=== PATIENT | male | born 1970 | race Caucasian/White ===

== ENCOUNTER 2018-04-03 18:10 | Inpatient (IN) | payer OTHER ==
[2018-04-03] VITALS (7 sets, daily range): BP systolic 109–147; BP diastolic 50–71; PULSE 90–102; RESP 20; TEMP 97.7–98; O2SAT 93–97
[~2018-04-03] VITALS: Ht 185.4 cm; Wt 140.0 kg
[2018-04-03] MEDS ORDERED: SODIUM CHLOR 0.9% 1000 ML INJ 1,000 ML IV ONE ×2 (19:00→22:15)
[2018-04-03] MEDS ORDERED: SODIUM CHLORIDE 0.9% FLUSH 10 ML FLUSH IVF PRN (19:00)
[2018-04-03] MEDS ORDERED: methylPREDNISolone SOD SUCC 125 MG/2 ML VIAL IV PUSH ONE (19:00)
--- NOTE | 2018-04-03 19:10 | PD ---
HPI Chief Complaint: Respiratory Symptoms Time Seen by Provider: 18:53 Travel History International Travel<30 days: No Contact w/Intl Traveler<30days: No Traveled to known affect area: No History of Present Illness HPI 48-year-old male presents to the emergency department for flulike symptoms for 2 days. Patient reports subjective fevers, cough, congestion, shortness of breath. Patient states that he quit smoking 6 days ago. He did smoke for 26 years. Patient states he will have chest pain with coughing, no pain at this time. No abdominal pain. No nausea, vomiting, diarrhea. He reports no chronic medical problems and takes no prescribed medications. Denies a history of CHF. Denies any weakness or syncope. No sore throat. He states that he recently moved from [place] and is not currently established with a primary care physician. He took ibuprofen 800 mg p.o. before arrival. No exacerbating or alleviating factors. Moderate severity. PFSH Social History Alcohol Use: No Tobacco Use: Yes Substance Use: No Allergies-Medications (Allergen,Severity, Reaction): Coded Allergies: No Known Allergies (Verified Allergy, Unknown, 04/03/18) Reported Meds & Prescriptions Reported Meds & Active Scripts Active Zithromax Z-Steven (Azithromycin) 250 Mg Dspk 250 Mg PO DIRECTED 500 MG (2 tabs) day 1, then 1 tab days 2-5. Review of Systems Except as stated in HPI: all other systems reviewed are Neg Physical Exam Narrative GENERAL: Well-nourished, well-developed obese male patient, afebrile. SKIN: Focused skin assessment warm/dry. HEAD: Normocephalic. Atraumatic ENT: Mucosa pink and moist. No erythema or exudates. No uvular edema. No uvular , palatal, or tonsillar deviation. Airway patent. Nasal turbinates appear normal without nasal blood, purulent drainage or septal hematoma. Bilateral tympanic membranes clear without erythema or perforation. EYES: No scleral icterus. No injection or drainage. NECK: Supple, trachea midline. No JVD or lymphadenopathy. CARDIOVASCULAR: Regular rate and rhythm without murmurs, gallops, or rubs. RESPIRATORY: Breath sounds equal bilaterally. No accessory muscle use. Lung sounds with expiratory wheezes noted throughout. GASTROINTESTINAL: Abdomen soft, non-tender, nondistended. MUSCULOSKELETAL: No cyanosis, or edema. BACK: Nontender without obvious deformity. No CVA tenderness. Data Data Last Documented VS Vital Signs Date Time Temp Pulse Resp B/P (MAP) Pulse Ox O2 Delivery O2 Flow Rate FiO2 04/03/18 22:33 98.0 98 20 147/71 (96) 97 Room Air Orders Orders Complete Blood Count With Diff (04/03/18 18:59) Basic Metabolic Panel (Bmp) (04/03/18 18:59) Act Partial Throm Time (Ptt) (04/03/18 18:59) Prothrombin Time / Inr (Pt) (04/03/18 18:59) Magnesium (Mg) (04/03/18 18:59) Ckmb (Isoenzyme) Profile (04/03/18 18:59) Troponin I (04/03/18 18:59) Influenzae A/B Antigen (04/03/18 18:59) Iv Access Insert/Monitor (04/03/18 18:59) Electrocardiogram (04/03/18 18:59) Ecg Monitoring (04/03/18 18:59) Oximetry (04/03/18 18:59) Oxygen Administration (04/03/18 18:59) Chest, Single Ap (04/03/18 18:59) Sodium Chloride 0.9% Flush (Ns Flush) (04/03/18 19:00) Methylprednisolone So Succ Inj (Solumedr (04/03/18 19:00) Albuterol-Ipratropium Neb (Duoneb Neb) (04/03/18 19:00) Sodium Chlor 0.9% 1000 Ml Inj (Ns 1000 M (04/03/18 19:00) CKMB (04/03/18 19:00) CKMB% (04/03/18 19:00) Lactic Acid Sepsis Protocol (04/03/18 19:48) Blood Culture (04/03/18 19:48) Azithromycin Inj (Zithromax Inj) (04/03/18 20:00) Ceftriaxone Inj (Rocephin Inj) (04/03/18 20:00) Sodium Chlor 0.9% 1000 Ml Inj (Ns 1000 M (04/03/18 22:15) Ed Discharge Order (04/03/18 22:52) Labs Laboratory Tests Test 04/03/18 19:00 04/03/18 20:00 White Blood Count 17.5 TH/MM3 Red Blood Count 4.65 MIL/MM3 Hemoglobin 13.7 GM/DL Hematocrit 42.1 % Mean Corpuscular Volume 90.6 FL Mean Corpuscular Hemoglobin 29.6 PG Mean Corpuscular Hemoglobin Concent 32.6 % Red Cell Distribution Width 13.7 % Platelet Count 321 TH/MM3 Mean Platelet Volume 8.0 FL Neutrophils (%) (Auto) 78.3 % Lymphocytes (%) (Auto) 10.8 % Monocytes (%) (Auto) 10.3 % Eosinophils (%) (Auto) 0.2 % Basophils (%) (Auto) 0.4 % Neutrophils # (Auto) 13.7 TH/MM3 Lymphocytes # (Auto) 1.9 TH/MM3 Monocytes # (Auto) 1.8 TH/MM3 Eosinophils # (Auto) 0.0 TH/MM3 Basophils # (Auto) 0.1 TH/MM3 CBC Comment DIFF FINAL Differential Comment Prothrombin Time 11.3 SEC Prothromb Time International Ratio 1.1 RATIO Activated Partial Thromboplast Time 28.4 SEC Blood Urea Nitrogen 11 MG/DL Creatinine 1.45 MG/DL Random Glucose 108 MG/DL Calcium Level 8.6 MG/DL Magnesium Level 2.3 MG/DL Sodium Level 140 MEQ/L Potassium Level 3.6 MEQ/L Chloride Level 106 MEQ/L Carbon Dioxide Level 24.4 MEQ/L Anion Gap 10 MEQ/L Estimat Glomerular Filtration Rate 52 ML/MIN Total Creatine Kinase 842 U/L Creatine Kinase MB 1.7 NG/ML Creatine Kinase MB % 0.2 % Troponin I LESS THAN 0.02 NG/ML Lactic Acid Level 1.3 mmol/L MDM Medical Decision Making Medical Screen Exam Complete: Yes Emergency Medical Condition: Yes Medical Record Reviewed: Yes Interpretation(s) Last Impressions Chest X-Ray 04/03/18 7892 Signed Impressions: Service Date/Time: Tuesday, April 03, 2018 19:03 - CONCLUSION: Left lower lobe infiltrate. Jesse Burgos Jr., MD Differential Diagnosis URI versus pneumonia versus influenza versus bronchitis versus ACS Narrative Course 48-year-old male presents to the emergency department for evaluation of flulike symptoms for 2 days. EKG, CBC, BMP, CK, troponin, magnesium, PTT, PT/INR, influenza, chest x-ray ordered and pending. Patient is given DuoNeb 2, they measure 125 mg IV, normal saline 1 L IV bolus. EKG shows SR, HR 100, no acute ST changes. CBC shows leukocytosis 17.5. BMP shows creatinine 1.45. CK is 842. Troponin is less than 0.02. Magnesium is 2.3. Coags are unremarkable. Influenza is negative. Chest x-ray shows left lower lobe infiltrate. Patient is given second liter normal saline IV bolus. My initial plan was to try patient for outpatient antibiotics. However, after receiving second liter normal saline IV bolus, he states that he is not feeling well again. His oxygen saturation is 89-90% on room air. He will be placed on 2 L O2 nasal cannula and admitted to the hospital. Sepsis Criteria SIRS Criteria (2 or more): Heart rate over 90, WBC > 58300, < 4000 or > 10% bands Sepsis Criteria (SIRS+source): Infect source susp/known Diagnosis Primary Impression: Pneumonia Qualified Codes: J18.1 - Lobar pneumonia, unspecified organism Additional Impression: Sepsis Qualified Codes: A41.9 - Sepsis, unspecified organism Referrals: Primary Care Physician 1 day Darline Martinez April 03, 2018 19:09
[2018-04-03] MEDS: RESP: ALBUTEROL 2.5 MG/IPRATROPIUM 0.5 MG NEB (SCH) INH (19:16)
--- NOTE | 2018-04-03 19:22 | RADRPT ---
EXAM DATE/TIME: 04/03/2018 19:03 [facility] COMPARISON: No previous studies available for comparison. INDICATIONS : Short of breath MEDICAL HISTORY : None. SURGICAL HISTORY : None. ENCOUNTER: Initial ACUITY: 4 - 6 days PAIN SCORE: 3/10 LOCATION: chest FINDINGS: 2 portable frontal views of the chest showed intra-alveolar infiltrate within the left base. Right libby ng is clear. No effusions. Heart is normal in size. Bony structures are unremarkable. CONCLUSION: Left lower lobe infiltrate. Jesse Burgos Jr., MD on April 03, 2018 at 19:19 Board Certified Radiologist. This report was verified electronically.
[2018-04-03 19:27] LABS: AUTOMATED NEUTROPHIL # 13.7 TH/MM3 (1.8-7.7); BASOPHIL # 0.1 TH/MM3 (0-0.2); BASOPHIL % 0.4 % (0.0-2.0); EOSINOPHIL % 0.2 % (0.0-4.0); HEMATOCRIT 42.1 % (39.0-51.0); HEMOGLOBIN 13.7 GM/DL (13.0-17.0); LYMPH % 10.8 % (9.0-44.0); LYMPHOCYTE # 1.9 TH/MM3 (1.0-4.8); MEAN CELL VOLUME 90.6 FL (80.0-100.0); MEAN CORPUSCULAR HEMOGLOBIN 29.6 PG (27.0-34.0); MEAN CORPUSCULAR HGB CONC 32.6 % (32.0-36.0); MONO % 10.3 % (0.0-8.0); MONOCYTE # 1.8 TH/MM3 (0-0.9); NEUT % 78.3 % (16.0-70.0); PLATELET COUNT 321 TH/MM3 (150-450); RED BLOOD COUNT 4.65 MIL/MM3 (4.50-5.90); RED CELL DISTRIBUTION WIDTH 13.7 % (11.6-17.2); WHITE BLOOD COUNT 17.5 TH/MM3 (4.0-11.0)
[2018-04-03 19:38] LABS: BICARBONATE 24.4 MEQ/L (21.0-32.0); BLOOD UREA NITROGEN 11 MG/DL (7-18); CALCIUM 8.6 MG/DL (8.5-10.1); CHLORIDE 106 MEQ/L (98-107); CREATININE 1.45 MG/DL (0.60-1.30); GLOMERULAR FILTRATION RATE 52 ML/MIN (>89); GLUCOSE,RANDOM 108 MG/DL (74-106); MAGNESIUM 2.3 MG/DL (1.5-2.5); SODIUM (NA) 140 MEQ/L (136-145)
[2018-04-03 19:45] LABS: INTERNATIONAL NORMALIZED RATIO 1.1 RATIO; PROTHROMBIN TIME - PATIENT 11.3 SEC (9.8-11.6); TROPONIN I LESS THAN 0.02 NG/ML (0.02-0.05)
[2018-04-03] MEDS ORDERED: AZITHROMYCIN INJ 500 MG in SODIUM CHLOR 0.9% 250 ML INJ 250 ML IV ONE (20:00)
[2018-04-03] MEDS ORDERED: cefTRIAXone INJ 1,000 MG in SODIUM CHLORIDE 0.9% INJ 100 ML IV ONE (20:00)
[2018-04-03] MEDS ORDERED: ZITHTAB PO ×2 (22:38→22:51)
[2018-04-03] MEDS ORDERED: RESP: ALBUTEROL 2.5 MG/IPRATROPIUM 0.5 MG NEB (PRN) INH (23:15)
[2018-04-03] MEDS ORDERED: ACETAMINOPHEN 325 MG TAB PO PRN (23:15)
[2018-04-03] MEDS ORDERED: SODIUM CHLORIDE 0.9% FLUSH 10 ML FLUSH IV FLUSH PRN (23:15)
[2018-04-03] MEDS ORDERED: ONDANSETRON ODT 4 MG TAB PO PRN (23:30)
[2018-04-04] VITALS (8 sets, daily range): BP systolic 122–144; BP diastolic 60–73; PULSE 94–107; RESP 17–19; TEMP 97.6–99; O2SAT 93–96
[2018-04-04] MEDS: methylPREDNISolone SOD SUCC 40 MG/1 ML VIAL IV PUSH SCH ×4 (02:05→20:06)
[2018-04-04 05:22] LABS: AUTOMATED NEUTROPHIL # 18.2 TH/MM3 (1.8-7.7); BASOPHIL % 0.1 % (0.0-2.0); HEMATOCRIT 38.9 % (39.0-51.0); HEMOGLOBIN 12.6 GM/DL (13.0-17.0); LYMPH % 4.8 % (9.0-44.0); LYMPHOCYTE # 0.9 TH/MM3 (1.0-4.8); MEAN CELL VOLUME 90.1 FL (80.0-100.0); MEAN CORPUSCULAR HEMOGLOBIN 29.2 PG (27.0-34.0); MEAN CORPUSCULAR HGB CONC 32.4 % (32.0-36.0); MEAN PLATELET VOLUME 7.9 FL (7.0-11.0); MONO % 1.9 % (0.0-8.0); MONOCYTE # 0.4 TH/MM3 (0-0.9); NEUT % 93.2 % (16.0-70.0); PLATELET COUNT 335 TH/MM3 (150-450); RED BLOOD COUNT 4.31 MIL/MM3 (4.50-5.90); WHITE BLOOD COUNT 19.5 TH/MM3 (4.0-11.0)
[2018-04-04 05:46] LABS: BICARBONATE 22.7 MEQ/L (21.0-32.0); CALCIUM 8.5 MG/DL (8.5-10.1); CREATININE 1.18 MG/DL (0.60-1.30)
[2018-04-04] MEDS: RESP: ALBUTEROL 2.5 MG/IPRATROPIUM 0.5 MG NEB (SCH) INH ×3 (07:32→19:18)
--- NOTE | 2018-04-04 09:13 | HHI.HP ---
HPI Service CP Hospitalists Primary Care Physician No Primary Care Physician Admission Diagnosis pneumonia Chief Complaint: cough fever Travel History International Travel<30 Days: No Contact w/Intl Traveler <30 Da: No Traveled to Known Affected Are: No History of Present Illness Patient is a pleasant 48-year-old male who presented to the [place] ER yesterday evening with complaints of fever and cough ongoing for the last 2 days. Patient complains of shortness of breath with exertion. Patient is a current smoker but states that he started smoking 6 days ago. Patient denies history of asthma or COPD. Patient denies any recent travel or particular sick contacts. Chest x-ray obtained in the ER (04/03/18) showed left lower lobe infiltrate. Patient was desaturating off supplemental oxygen. Patient was admitted to [facility] for further evaluation and treatment. Review of Systems Constitutional: COMPLAINS OF: Fever, DENIES: Diaphoretic episodes, Fatigue, Weight gain, Weight loss, Chills, Dizziness, Change in appetite, Night Sweats Endocrine: DENIES: Heat/cold intolerance, Polydipsia, Polyuria, Polyphagia Eyes: DENIES: Blurred vision, Diplopia, Eye inflammation, Eye pain, Vision loss , Photosensitivity, Double Vision Ears, nose, mouth, throat: DENIES: Tinnitus, Hearing loss, Vertigo, Nasal discharge, Oral lesions, Throat pain, Hoarseness, Ear Pain, Running Nose, Epistaxis, Sinus Pain, Toothache, Odynophagia Respiratory: COMPLAINS OF: Cough, Shortness of breath, DENIES: Apneas, Snoring , Wheezing, Hemoptysis, Sputum production Cardiovascular: DENIES: Chest pain, Palpitations, Syncope, Dyspnea on Exertion , PND, Lower Extremity Edema, Orthopnea, Claudication Gastrointestinal: DENIES: Abdominal pain, Black stools, Bloody stools, BRB per rectum, Constipation, Diarrhea, GERD, Nausea, Reflux, Vomiting, Difficulty Swallowing, Anorexia Genitourinary: DENIES: Urinary incontinence, Urgency, Hematuria, Dysuria, Nocturia Musculoskeletal: DENIES: Joint pain, Muscle aches, Stiffness, Joint Swelling, Back pain, Neck pain Integumentary: DENIES: Abnormal pigmentation, Nail changes, Pruritus, Rash Hematologic/lymphatic: DENIES: Bruising, Lymphadenopathy Immunologic/allergic: DENIES: Eczema, Urticaria Neurologic: DENIES: Abnormal gait, Headache, Localized weakness, Paresthesias, Seizures, Speech Problems, Tremor, Poor Balance Psychiatric: DENIES: Anxiety, Confusion, Mood changes, Depression, Hallucinations, Agitation, Suicidal Ideation, Homicidal Ideation, Delusions, History of Bipolar, History of Schizophrenia Past Family Social History Past Medical History 1) current smoker 2) obesity Past Surgical History None Reported Medications Reported Meds & Active Scripts Active Allergies: Coded Allergies: No Known Allergies (Verified Allergy, Unknown, 04/03/18) Family History Noncontributory Social History - Patient recently relocated to [facility] from the [facility] - Patient is a current smoker - No alcohol use - No illicit street drugs Physical Exam Vital Signs Vital Signs Date Time Temp Pulse Resp B/P (MAP) Pulse Ox O2 Delivery O2 Flow Rate FiO2 04/04/18 07:46 98.1 100 19 124/65 (84) 95 04/04/18 07:34 94 21 04/04/18 04:25 99.0 94 18 128/65 (86) 93 04/04/18 00:23 98.1 98 18 129/73 (91) 96 04/03/18 22:33 98.0 98 20 147/71 (96) 97 Room Air 04/03/18 22:00 93 04/03/18 21:00 98 20 138/64 (88) 97 Room Air 04/03/18 19:23 100 20 113/62 (79) 97 Room Air 04/03/18 19:13 20 04/03/18 19:12 Room Air 04/03/18 19:06 90 20 120/50 (73) 94 Room Air 04/03/18 19:03 98 24 94 Room Air 04/03/18 18:24 97.7 102 20 109/68 (82) 96 Physical Exam GENERAL: This is a well-nourished, well-developed patient, in no apparent distress. SKIN: No rashes, ecchymoses or lesions. Cool and dry. HEAD: Atraumatic. Normocephalic. No temporal or scalp tenderness. EYES: Pupils equal round and reactive. Extraocular motions intact. No scleral icterus. No injection or drainage. ENT: Nose without bleeding, purulent drainage or septal hematoma. Throat without erythema, tonsillar hypertrophy or exudate. Uvula midline. Airway patent. NECK: Trachea midline. No JVD or lymphadenopathy. Supple, nontender, no meningeal signs. CARDIOVASCULAR: Regular rate and rhythm without murmurs, gallops, or rubs. RESPIRATORY: Decreased air movement at lung bases GASTROINTESTINAL: Abdomen soft, non-tender, nondistended. No hepato-splenomegaly , or palpable masses. No guarding. MUSCULOSKELETAL: Extremities without clubbing, cyanosis, or edema. No joint tenderness, effusion, or edema noted. No calf tenderness. Negative Homans sign bilaterally. NEUROLOGICAL: Awake and alert. Cranial nerves II through XII intact. Motor and sensory grossly within normal limits. Five out of 5 muscle strength in all muscle groups. Normal speech. Laboratory Laboratory Tests Test 04/03/18 19:00 04/03/18 20:00 04/04/18 04:44 White Blood Count 17.5 19.5 Red Blood Count 4.65 4.31 Hemoglobin 13.7 12.6 Hematocrit 42.1 38.9 Mean Corpuscular Volume 90.6 90.1 Mean Corpuscular Hemoglobin 29.6 29.2 Mean Corpuscular Hemoglobin Concent 32.6 32.4 Red Cell Distribution Width 13.7 14.0 Platelet Count 321 335 Mean Platelet Volume 8.0 7.9 Neutrophils (%) (Auto) 78.3 93.2 Lymphocytes (%) (Auto) 10.8 4.8 Monocytes (%) (Auto) 10.3 1.9 Eosinophils (%) (Auto) 0.2 0.0 Basophils (%) (Auto) 0.4 0.1 Neutrophils # (Auto) 13.7 18.2 Lymphocytes # (Auto) 1.9 0.9 Monocytes # (Auto) 1.8 0.4 Eosinophils # (Auto) 0.0 0.0 Basophils # (Auto) 0.1 0.0 CBC Comment DIFF FINAL DIFF FINAL Differential Comment Prothrombin Time 11.3 Prothromb Time International Ratio 1.1 Activated Partial Thromboplast Time 28.4 Blood Urea Nitrogen 11 10 Creatinine 1.45 1.18 Random Glucose 108 157 Calcium Level 8.6 8.5 Magnesium Level 2.3 Sodium Level 140 142 Potassium Level 3.6 4.0 Chloride Level 106 110 Carbon Dioxide Level 24.4 22.7 Anion Gap 10 9 Estimat Glomerular Filtration Rate 52 66 Total Creatine Kinase 842 Creatine Kinase MB 1.7 Creatine Kinase MB % 0.2 Troponin I LESS THAN 0.02 Lactic Acid Level 1.3 Date/Time Source Procedure Growth Status 04/03/18 20:00 Blood Peripheral Aerobic Blood Culture Pending Received 04/03/18 20:00 Blood Peripheral Anaerobic Blood Culture Pending Received 04/03/18 19:05 Nasal Aspirate Influenza Types A,B Antigen (RAISSA) - Final NEGATIVE FOR FLU A AND B ANTIGEN.... Complete Result Diagram: 04/04/18 0444 04/04/18 0444 Caprini VTE Risk Assessment Caprini VTE Risk Assessment: No/Low Risk (score <= 1) Caprini Risk Assessment Model Point Value = 1 Point Value = 2 Point Value = 3 Point Value = 5 Age 41-60 Minor surgery BMI > 25 kg/m2 Swollen legs Varicose veins or History of unexplained or recurrent spontaneous Oral contraceptives or hormone replacement Sepsis (< 1 month) Serious lung disease, including pneumonia (< 1 month) Abnormal pulmonary function Acute myocardial infarction Congestive heart failure (< 1 month) History of inflammatory bowel disease Medical patient at bed rest Age 61-74 Arthroscopic surgery Major open surgery (> 45 min) Laparoscopic surgery (> 45 min) Malignancy Confined to bed (> 72 hours) Immobilizing plaster cast Central venous access Age >= 75 History of VTE Family history of VTE Factor V Leiden Prothrombin [id number] Lupus anticoagulant Anticardiolipin antibodies Elevated serum homocysteine Heparin-induced thrombocytopenia Other congenital or acquired thrombophilia Stroke (< 1 month) Elective arthroplasty Hip, pelvis, or leg fracture Acute spinal cord injury (< 1 month) Prophylaxis Regimen Total Risk Factor Score Risk Level Prophylaxis Regimen 0-1 Low Early ambulation 2 Moderate Order ONE of the following: *Sequential Compression Device (SCD) *Heparin 5000 units SQ BID 3-4 Higher Order ONE of the following medications: *Heparin 5000 units SQ TID *Enoxaparin/Lovenox 40 mg SQ daily (WT < 150 kg, CrCl > 30 mL/min) *Enoxaparin/Lovenox 30 mg SQ daily (WT < 150 kg, CrCl > 10-29 mL/min) *Enoxaparin/Lovenox 30 mg SQ BID (WT < 150 kg, CrCl > 30 mL/min) AND/OR *Sequential Compression Device (SCD) 5 or more Highest Order ONE of the following medications: *Heparin 5000 units SQ TID (Preferred with Epidurals) *Enoxaparin/Lovenox 40 mg SQ daily (WT < 150 kg, CrCl > 30 mL/min) *Enoxaparin/Lovenox 30 mg SQ daily (WT < 150 kg, CrCl > 10-29 mL/min) *Enoxaparin/Lovenox 30 mg SQ BID (WT < 150 kg, CrCl > 30 mL/min) AND *Sequential Compression Device (SCD) Assessment and Plan Problem List: (1) Pneumonia ICD Codes: J18.9 - Pneumonia, unspecified organism Status: Acute Plan: - Patient is a pleasant 48-year-old male with obesity. Patient is a current smoker. - Patient has been having cough, fever, worsening shortness of breath over the last several days. - Chest x-ray (04/03/18) showed left lower lobe infiltrate. - Patient desaturated off supplemental oxygen. - Patient is not septic. Patient appears nontoxic. - Blood Cultures (04/03/18) --> NGTD - Influenza --> negative - Continue IV Rocephin - Continue azithromycin - DuoNeb treatments q6h WA and q2h prn - DVT prophylaxis - supportive care (2) Tobacco abuse ICD Codes: Z72.0 - Tobacco use Status: Chronic Plan: - pt counseled on the importance of smoking cessation Physician Certification 2 Midnight Certification Type: Admission for Inpatient Services Order for Inpatient Services The services are ordered in accordance with Medicare regulations or non- Medicare payer requirements, as applicable. In the case of services not specified as inpatient-only, they are appropriately provided as inpatient services in accordance with the 2-midnight benchmark. Estimated LOS (days): 3 3 days is the estimated time the patient will need to remain in the hospital, assuming treatment plan goals are met and no additional complications. Post-Hospital Plan: Not yet determined Problem Qualifiers (1) Pneumonia: Qualified Codes: J18.1 - Lobar pneumonia, unspecified organism Himanshu Marroquin DO April 04, 2018 09:13
[2018-04-04] MEDS: cefTRIAXone INJ 1,000 MG in SODIUM CHLORIDE 0.9% INJ 100 ML IV SCH (09:43)
[2018-04-04] MEDS: AZITHROMYCIN 250 MG TAB PO SCH (09:43)
[2018-04-04] MEDS: SODIUM CHLORIDE 0.9% FLUSH 10 ML FLUSH IV FLUSH SCH ×2 (09:43→20:07)
--- NOTE | 2018-04-04 16:03 | EKG ---
Date Performed: 04/03/2018 Time Performed: 18:41:41 PTAGE: 48 years EKG: SINUS TACHYCARDIA NONSPECIFIC T-WAVE ABNORMALITY ABNORMAL RHYTHM ECG NO PREVIOUS TRACING DOCTOR: Yandel Cameron Interpretating Date/Time 04/04/2018 16:04:12
--- NOTE | 2018-04-04 18:55 | RADRPT ---
EXAM DATE: 04/04/2018 6:25 PM EDT AGE/SEX: 48 years / Male INDICATIONS: Cough. CLINICAL DATA: This is the patient's initial encounter. Patient reports that signs and symptoms have been present for 3 days and indicates a pain score of 4/10. MEDICAL/SURGICAL HISTORY: None. None. COMPARISON: No prior [facility] exams available for comparison. FINDINGS: The heart size is normal. There is increased density seen at the left base. Right lung is grossly clear. No effusion is seen. CONCLUSION: Left lower lung mild consolidation or atelectasis. Electronically signed by: Carlos Alberto Schultz MD 04/04/2018 6:53 PM EDT
[2018-04-05 00:30] VITALS: BP 116/50; PULSE 90; RESP 18; TEMP 98; O2SAT 97
[2018-04-05] MEDS: methylPREDNISolone SOD SUCC 125 MG/2 ML VIAL IV SCH ×3 (02:15→13:24)
[2018-04-05 05:41] LABS: AUTOMATED NEUTROPHIL # 23.5 TH/MM3 (1.8-7.7); BASOPHIL # 0.1 TH/MM3 (0-0.2); BASOPHIL % 0.3 % (0.0-2.0); HEMATOCRIT 39.3 % (39.0-51.0); HEMOGLOBIN 12.4 GM/DL (13.0-17.0); LYMPH % 5.5 % (9.0-44.0); LYMPHOCYTE # 1.4 TH/MM3 (1.0-4.8); MEAN CELL VOLUME 90.2 FL (80.0-100.0); MEAN CORPUSCULAR HEMOGLOBIN 28.5 PG (27.0-34.0); MEAN CORPUSCULAR HGB CONC 31.6 % (32.0-36.0); MEAN PLATELET VOLUME 7.8 FL (7.0-11.0); MONO % 3.3 % (0.0-8.0); MONOCYTE # 0.9 TH/MM3 (0-0.9); NEUT % 90.9 % (16.0-70.0); PLATELET COUNT 412 TH/MM3 (150-450); RED BLOOD COUNT 4.35 MIL/MM3 (4.50-5.90); RED CELL DISTRIBUTION WIDTH 14.2 % (11.6-17.2); WHITE BLOOD COUNT 25.9 TH/MM3 (4.0-11.0)
[2018-04-05] MEDS: RESP: ALBUTEROL 2.5 MG/IPRATROPIUM 0.5 MG NEB (SCH) INH ×3 (07:34→19:06)
[2018-04-05 07:37] VITALS: O2SAT 94
[2018-04-05 07:56] VITALS: BP 133/63; PULSE 91; RESP 19; TEMP 97.8; O2SAT 94
[2018-04-05] MEDS: AZITHROMYCIN 250 MG TAB PO SCH (09:50)
[2018-04-05] MEDS: cefTRIAXone INJ 1,000 MG in SODIUM CHLORIDE 0.9% INJ 100 ML IV SCH (09:51)
[2018-04-05] MEDS: SODIUM CHLORIDE 0.9% FLUSH 10 ML FLUSH IV FLUSH SCH ×2 (09:51→20:32)
[2018-04-05 11:49] VITALS: BP 107/53; PULSE 94; RESP 19; TEMP 98; O2SAT 94
[2018-04-05] MEDS ORDERED: PRED10 PO (13:41)
[2018-04-05] MEDS ORDERED: LEVA500T33 PO (13:42)
--- NOTE | 2018-04-05 13:47 | HHI.PR ---
Subjective Remarks Patient reports feeling much better still reports some SOB on exertion Objective Vitals Vital Signs Date Time Temp Pulse Resp B/P (MAP) Pulse Ox O2 Delivery O2 Flow Rate FiO2 04/05/18 11:49 98.0 94 19 107/53 (71) 94 04/05/18 07:56 97.8 91 19 133/63 (86) 94 04/05/18 07:37 94 Nasal Cannula 2.00 04/05/18 00:30 98.0 90 18 116/50 (72) 97 04/04/18 20:15 97.6 102 17 122/61 (81) 94 04/04/18 19:18 95 21 04/04/18 16:00 97.8 107 19 144/65 (91) 96 Result Diagram: 04/05/18 0435 04/04/18 0444 Other Results Laboratory Tests Test 04/03/18 19:00 04/03/18 20:00 04/04/18 04:44 04/05/18 04:35 White Blood Count 17.5 TH/MM3 19.5 TH/MM3 25.9 TH/MM3 Red Blood Count 4.65 MIL/MM3 4.31 MIL/MM3 4.35 MIL/MM3 Hemoglobin 13.7 GM/DL 12.6 GM/DL 12.4 GM/DL Hematocrit 42.1 % 38.9 % 39.3 % Mean Corpuscular Volume 90.6 FL 90.1 FL 90.2 FL Mean Corpuscular Hemoglobin 29.6 PG 29.2 PG 28.5 PG Mean Corpuscular Hemoglobin Concent 32.6 % 32.4 % 31.6 % Red Cell Distribution Width 13.7 % 14.0 % 14.2 % Platelet Count 321 TH/MM3 335 TH/MM3 412 TH/MM3 Mean Platelet Volume 8.0 FL 7.9 FL 7.8 FL Neutrophils (%) (Auto) 78.3 % 93.2 % 90.9 % Lymphocytes (%) (Auto) 10.8 % 4.8 % 5.5 % Monocytes (%) (Auto) 10.3 % 1.9 % 3.3 % Eosinophils (%) (Auto) 0.2 % 0.0 % 0.0 % Basophils (%) (Auto) 0.4 % 0.1 % 0.3 % Neutrophils # (Auto) 13.7 TH/MM3 18.2 TH/MM3 23.5 TH/MM3 Lymphocytes # (Auto) 1.9 TH/MM3 0.9 TH/MM3 1.4 TH/MM3 Monocytes # (Auto) 1.8 TH/MM3 0.4 TH/MM3 0.9 TH/MM3 Eosinophils # (Auto) 0.0 TH/MM3 0.0 TH/MM3 0.0 TH/MM3 Basophils # (Auto) 0.1 TH/MM3 0.0 TH/MM3 0.1 TH/MM3 CBC Comment DIFF FINAL DIFF FINAL DIFF FINAL Differential Comment Prothrombin Time 11.3 SEC Prothromb Time International Ratio 1.1 RATIO Activated Partial Thromboplast Time 28.4 SEC Blood Urea Nitrogen 11 MG/DL 10 MG/DL Creatinine 1.45 MG/DL 1.18 MG/DL Random Glucose 108 MG/DL 157 MG/DL Calcium Level 8.6 MG/DL 8.5 MG/DL Magnesium Level 2.3 MG/DL Sodium Level 140 MEQ/L 142 MEQ/L Potassium Level 3.6 MEQ/L 4.0 MEQ/L Chloride Level 106 MEQ/L 110 MEQ/L Carbon Dioxide Level 24.4 MEQ/L 22.7 MEQ/L Anion Gap 10 MEQ/L 9 MEQ/L Estimat Glomerular Filtration Rate 52 ML/MIN 66 ML/MIN Total Creatine Kinase 842 U/L Creatine Kinase MB 1.7 NG/ML Creatine Kinase MB % 0.2 % Troponin I LESS THAN 0.02 NG/ML Lactic Acid Level 1.3 mmol/L Imaging Last Impressions Chest X-Ray 04/04/18 0800 Signed Impressions: CONCLUSION: Left lower lung mild consolidation or atelectasis. Objective Remarks GENERAL: This is an obese, well-developed patient, in no apparent distress. CARDIOVASCULAR: Regular rate and rhythm RESPIRATORY: decreased LLL GASTROINTESTINAL: Abdomen soft, non-tender, nondistended. Normal active bowel sounds MUSCULOSKELETAL: Extremities without clubbing, cyanosis, or edema. NEURO: Alert & Oriented x4 to person, place, time, situation. Moves all ext x4 A/P Problem List: (1) Pneumonia ICD Codes: J18.9 - Pneumonia, unspecified organism Status: Acute Plan: - Patient is a pleasant 48-year-old male with obesity. Patient is a current smoker. - Patient has been having cough, fever, worsening shortness of breath over the last several days. - Chest x-ray (04/03/18) showed left lower lobe infiltrate. - Patient desaturated off supplemental oxygen. - Patient is not septic. Patient appears nontoxic. - Blood Cultures (04/03/18) --> NG x 2 days - Influenza --> negative - change solu medrol IV to prednisone 30 mg PO twice a day - Continue IV Rocephin - Continue azithromycin - DuoNeb treatments q6h WA and q2h prn - DVT prophylaxis - supportive care (2) Tobacco abuse ICD Codes: Z72.0 - Tobacco use Status: Chronic Plan: - pt counseled on the importance of smoking cessation Assessment and Plan Patient examined. Assessment and plan formulated with Hyacinth Waller PA-C. I agree with the above. Problem Qualifiers (1) Pneumonia: Qualified Codes: J18.1 - Lobar pneumonia, unspecified organism Hyacinth Waller April 05, 2018 13:47 Himanshu Marroquin DO April 06, 2018 13:21
--- NOTE | 2018-04-05 13:49 | HHI.DCPOC ---
Discharge Care Plan Diagnosis: (1) Pneumonia (2) Tobacco abuse Goals to Promote Your Health * To prevent worsening of your condition and complications * To maintain your health at the optimal level Directions to Meet Your Goals Take your medications as prescribed Follow your dietary instruction Follow activity as directed Keep your appointments as scheduled Take your immunizations and boosters as scheduled If your symptoms worsen call your PCP, if no PCP go to Urgent Care Center or Emergency Room Smoking is Dangerous to Your Health. Avoid second hand smoke Call the 24-hour hour crisis hotline for domestic abuse at Hyacinth Waller April 05, 2018 13:49 Himanshu Marroquin DO April 06, 2018 13:22
--- NOTE | 2018-04-05 13:49 | HHI.DS ---
Discharge Summary Admission Date April 03, 2018 at 23:17 Discharge Date: April 06, 2018 Admitting Diagnosis pneumonia (1) Pneumonia ICD Codes: J18.9 - Pneumonia, unspecified organism Status: Acute (2) Tobacco abuse ICD Codes: Z72.0 - Tobacco use Status: Chronic Consultants None Procedures None Brief History Patient is a pleasant 48-year-old male who presented to the [place] ER yesterday evening with complaints of fever and cough ongoing for the last 2 days. Patient complains of shortness of breath with exertion. Patient is a current smoker but states that he started smoking 6 days ago. Patient denies history of asthma or COPD. Patient denies any recent travel or particular sick contacts. Chest x-ray obtained in the ER (04/03/18) showed left lower lobe infiltrate. Patient was desaturating off supplemental oxygen. Patient was admitted to [facility] for further evaluation and treatment. CBC/BMP: 04/05/18 0435 04/04/18 0444 Significant Findings Laboratory Tests Test 04/03/18 19:00 04/03/18 20:00 04/04/18 04:44 04/05/18 04:35 White Blood Count 17.5 TH/MM3 (4.0-11.0) 19.5 TH/MM3 (4.0-11.0) 25.9 TH/MM3 (4.0-11.0) Neutrophils (%) (Auto) 78.3 % (16.0-70.0) 93.2 % (16.0-70.0) 90.9 % (16.0-70.0) Monocytes (%) (Auto) 10.3 % (0.0-8.0) Neutrophils # (Auto) 13.7 TH/MM3 (1.8-7.7) 18.2 TH/MM3 (1.8-7.7) 23.5 TH/MM3 (1.8-7.7) Monocytes # (Auto) 1.8 TH/MM3 (0-0.9) Creatinine 1.45 MG/DL (0.60-1.30) Random Glucose 108 MG/DL (74-106) 157 MG/DL (74-106) Estimat Glomerular Filtration Rate 52 ML/MIN (>89) 66 ML/MIN (>89) Total Creatine Kinase 842 U/L (39-308) Troponin I LESS THAN 0.02 NG/ML Red Blood Count 4.31 MIL/MM3 (4.50-5.90) 4.35 MIL/MM3 (4.50-5.90) Hemoglobin 12.6 GM/DL (13.0-17.0) 12.4 GM/DL (13.0-17.0) Hematocrit 38.9 % (39.0-51.0) Lymphocytes (%) (Auto) 4.8 % (9.0-44.0) 5.5 % (9.0-44.0) Lymphocytes # (Auto) 0.9 TH/MM3 (1.0-4.8) Chloride Level 110 MEQ/L (98-107) Mean Corpuscular Hemoglobin Concent 31.6 % (32.0-36.0) Imaging Last Impressions Chest X-Ray 04/04/18 0800 Signed Impressions: CONCLUSION: Left lower lung mild consolidation or atelectasis. PE at Discharge GENERAL: This is an obese, well-developed patient, in no apparent distress. CARDIOVASCULAR: Regular rate and rhythm RESPIRATORY: clear through out GASTROINTESTINAL: Abdomen soft, non-tender, nondistended. Normal active bowel sounds MUSCULOSKELETAL: Extremities without clubbing, cyanosis, or edema. NEURO: Alert & Oriented x4 to person, place, time, situation. Moves all ext x4 Hospital Course Pneumonia - Patient is a pleasant 48-year-old male with obesity. Patient is a current smoker. - Patient has been having cough, fever, worsening shortness of breath over the last several days. - Chest x-ray (04/03/18) showed left lower lobe infiltrate. - Patient desaturated off supplemental oxygen. - Patient is not septic. Patient appears nontoxic. - Blood Cultures (04/03/18) --> NG x 2 days - Influenza --> negative - change solu medrol IV to prednisone 30 mg PO twice a day - Continue IV Rocephin - Continue azithromycin - DuoNeb treatments q6h WA and q2h prn - DVT prophylaxis - supportive care Tobacco abuse - pt counseled on the importance of smoking cessation Pt Condition on Discharge: Stable Discharge Disposition: Discharge Home Discharge Instructions DIET: Follow Instructions for: Weight Management Activities you can perform: Regular-No Restrictions Follow up Referrals: PCP Follow-up - [address] Campos or Dr[address] Cordoba New Medications: Levofloxacin (Levaquin) 500 Mg Tablet 500 MG PO DAILY for Infection for 8 Days, #8 TAB 0 Refills Prednisone (Prednisone) 10 Mg Tab 10 MG PO DIRECTED for steroid taper, #21 TAB 0 Refills Take 20 mg by mouth twice a day for 3 days, then take 20 mg by mouth once a day for 3 days, then tale 10 mg by mouth once a day for 3 days, then stop Additional Information CBC in 1 week results to PCP Hyacinth Waller April 05, 2018 13:49
[2018-04-05 15:41] VITALS: BP 114/61; PULSE 89; RESP 19; TEMP 97.8; O2SAT 93
[2018-04-05 20:00] VITALS: BP 144/80; PULSE 99; RESP 22; TEMP 97.9; O2SAT 94
[2018-04-05] MEDS ORDERED: BENZOCAINE-MENTHOL (SUGAR FREE) 15 MG-3.6 MG LOZENGE BUCCAL PRN (20:00)
[2018-04-05] MEDS: predniSONE 10 MG TAB PO SCH (20:33)
[2018-04-06] VITALS: BP 108/63; PULSE 80; RESP 21; TEMP 97.5; O2SAT 94
[2018-04-06] MEDS: RESP: ALBUTEROL 2.5 MG/IPRATROPIUM 0.5 MG NEB (SCH) INH ×2 (07:39→12:18)
[2018-04-06 07:40] VITALS: O2SAT 94
[2018-04-06 07:48] VITALS: BP 93/53; PULSE 65; RESP 19; TEMP 98.2; O2SAT 95
[2018-04-06] MEDS ORDERED: NEBULIZER1 MI1 (08:07)
[2018-04-06] MEDS ORDERED: ALBU.5I NEB (08:07)
[2018-04-06] MEDS ORDERED: IPRA0.02 NEB (08:07)
[2018-04-06] MEDS: predniSONE 10 MG TAB PO SCH (08:17)
[2018-04-06] MEDS: cefTRIAXone INJ 1,000 MG in SODIUM CHLORIDE 0.9% INJ 100 ML IV SCH (08:17)
[2018-04-06] MEDS: AZITHROMYCIN 250 MG TAB PO SCH (08:17)
[2018-04-06] MEDS: SODIUM CHLORIDE 0.9% FLUSH 10 ML FLUSH IV FLUSH SCH (08:18)
[2018-04-06 11:02] LABS: AUTOMATED NEUTROPHIL # 19.8 TH/MM3 (1.8-7.7); BASOPHIL % 0.1 % (0.0-2.0); EOSINOPHIL % 0.1 % (0.0-4.0); HEMATOCRIT 39.8 % (39.0-51.0); HEMOGLOBIN 12.7 GM/DL (13.0-17.0); LYMPH % 10.7 % (9.0-44.0); LYMPHOCYTE # 2.6 TH/MM3 (1.0-4.8); MEAN CELL VOLUME 91.5 FL (80.0-100.0); MEAN CORPUSCULAR HEMOGLOBIN 29.3 PG (27.0-34.0); MEAN PLATELET VOLUME 7.6 FL (7.0-11.0); MONO % 6.5 % (0.0-8.0); MONOCYTE # 1.6 TH/MM3 (0-0.9); NEUT % 82.6 % (16.0-70.0); PLATELET COUNT 426 TH/MM3 (150-450); RED BLOOD COUNT 4.35 MIL/MM3 (4.50-5.90); RED CELL DISTRIBUTION WIDTH 14.3 % (11.6-17.2)
[2018-04-06 11:35] VITALS: BP 115/64; PULSE 80; RESP 19; TEMP 98.1; O2SAT 95
[2018-04-06 11:51] LABS: BANDS 2 % (0-6); LYMPHOCYTES 8 % (9-44); MONOCYTES 11 % (0-8); MYELOCYTES 1 % (0-0); NEUTROPHIL # MANUAL DIFF 19.4 TH/MM3 (1.8-7.7); POLYS (SEG NEUTROPHILS) 78 % (16-70)
--- NOTE | 2018-04-06 13:20 | HHI.PR ---
Subjective Remarks No new complaints. Objective Vitals Vital Signs Date Time Temp Pulse Resp B/P (MAP) Pulse Ox O2 Delivery O2 Flow Rate FiO2 04/06/18 11:35 98.1 80 19 115/64 (81) 95 04/06/18 07:48 98.2 65 19 93/53 (66) 95 04/06/18 07:40 94 21 04/06/18 00:00 97.5 80 21 108/63 (78) 94 04/05/18 22:05 Room Air 04/05/18 20:00 97.9 99 22 144/80 (101) 94 04/05/18 15:41 97.8 89 19 114/61 (78) 93 Result Diagram: 04/06/18 1044 04/04/18 0444 Imaging Last Impressions Chest X-Ray 04/04/18 0800 Signed Impressions: CONCLUSION: Left lower lung mild consolidation or atelectasis. Objective Remarks GENERAL: This is an obese, well-developed patient, in no apparent distress. CARDIOVASCULAR: Regular rate and rhythm RESPIRATORY: mild rhonchi at LLL base GASTROINTESTINAL: Abdomen soft, non-tender, nondistended. Normal active bowel sounds MUSCULOSKELETAL: Extremities without clubbing, cyanosis, or edema. NEURO: Alert & Oriented x4 to person, place, time, situation. Moves all ext x4 Procedures None A/P Problem List: (1) Pneumonia ICD Codes: J18.9 - Pneumonia, unspecified organism Status: Acute Plan: - Patient is a pleasant 48-year-old male with obesity. Patient is a current smoker. - Patient has been having cough, fever, worsening shortness of breath over the last several days. - Chest x-ray (04/03/18) showed left lower lobe infiltrate. - Patient desaturated off supplemental oxygen upon admission - Patient is not septic. Patient appears nontoxic. - Blood Cultures (04/03/18) --> NG x 2 days - Influenza --> negative - change solu medrol IV to prednisone 30 mg PO twice a day - Continue IV Rocephin - Continue azithromycin - DuoNeb treatments q6h WA and q2h prn - DVT prophylaxis - supportive care 04/06/18 - pt is comfortable and afebrile. - Pt is ambulating in the hallways without oxygen - Pt is eager for discharge. - Discharge orders for AM placed yesterday afternoon. - repeat CBC this AM showed WBC 24.0 (04/06). WBC was 25.9 (04/07) - Pt appears stable for discharge. - Case Mgmt to arrange home nebulizer. - Pt currently has NO assigned [facility] PCP. Pt to f/u in [address] Don Campos or other [facility] PCP. Pt instructed to call member services at [facility] to have a PCP assisged. - Pt to have f/u CBC at [facility] outpt lab next April [address] Campos. - see discharge orders. (2) Tobacco abuse ICD Codes: Z72.0 - Tobacco use Status: Chronic Plan: - pt counseled on the importance of smoking cessation Problem Qualifiers (1) Pneumonia: Qualified Codes: J18.1 - Lobar pneumonia, unspecified organism Himanshu Marroquin DO April 06, 2018 13:20
== END 2018-04-06 14:27 | disposition home or self-care (01) | DRG 194 ==
LOC: NEPC 18:10 → NEDA 23:17 → N06A 04-04 00:10
PROVIDERS: ADMIT Hospitalist; ATTEND Hospitalist
DX: J18.9 Pneumonia, unspecified organism (principal); Z68.41 Body mass index [BMI] 40.0-44.9, adult; E66.9 Obesity, unspecified; F17.200 Nicotine dependence, unspecified, uncomplicated
CPT/HCPCS: 71045; 71046; 80048; 82550; 82552; 83605; 83735; 84484; 85007; 85025; 85027; 85610; 85730; 87040; 87804; 93005; 94640; 94664; 96361; 96365; 96368; 96375; J0456; J0696; J2920; J2930; J7030; J7050; J7512